=== PATIENT | female | born 1955 | race Caucasian/White ===

== ENCOUNTER 2018-11-24 08:45 | Inpatient (IN) | payer OTHER, SELFPAY ==
[2018-11-03 14:51] VITALS: BMI 30.9
[2018-11-24] VITALS (13 sets, daily range): BP systolic 123–164; BP diastolic 64–95; PULSE 66–84; RESP 10–20; TEMP 36.3–37.2; O2SAT 91–98; BMI 30.5
[2018-11-24] MEDS: LACTATED RINGERS 1,000 ML 42 ML IV ×2 (09:44→12:45)
[2018-11-24] MEDS: CELECOXIB 200 MG CAPSULE PO (09:44)
[2018-11-24] MEDS: PREGABALIN 75 MG CAPSULE PO (09:44)
[2018-11-24] MEDS: ACETAMINOPHEN 325 MG TABLET 975 MG PO ×2 (09:45→20:08)
--- NOTE | 2018-11-24 10:13 | PM.PREOP ---
Pre-operative Note Interval Note History & Physical reviewed/Exam performed by Physician: Yes Changes to H&P: No
--- NOTE | 2018-11-24 11:00 | DI.RAD.S_ITS ---
PROCEDURE: XR KNEE RT 1TO2V INDICATIONS: prosthesis placement TECHNIQUE: 2 view(s) of the knee acquired. COMPARISON: None. FINDINGS: Bones: Patient is status post knee joint arthroplasty. Hardware components are in expected positions. Visualized bony structures are intact. Soft tissues: Overlying postoperative changes are noted. IMPRESSION: Status post right total knee arthroplasty. Dictated by: Peggy Lewis M.D. on 11/24/2018 at 13:22 Approved by: Peggy Lewis M.D. on 11/24/2018 at 13:22
[2018-11-24] MEDS: CEFAZOLIN 2 GM/100 ML FROZ.PIGGY IV ×2 (11:15→18:47)
[2018-11-24] MEDS: LIDOCAINE 1% W/EPI INJ 20 ML INJ (11:15)
[2018-11-24] MEDS: TRANEXAMIC ACID 1,000 MG VIAL 1000 MG INJ (11:20)
--- NOTE | 2018-11-24 11:35 | SUR.OPER ---
Supine on padded OR bed. Pillow under head, arms secured on padded armboards <90 degree abduction. Safety belt across torso. Non-operative leg secured with tape over blanket over lower leg. Operative leg secured in [place] positioner. Foam padded brace at thigh of operative leg.
[2018-11-24] MEDS: POVIDONE-IODINE 15 ML, SODIUM CHLORIDE 0.9% 250 ML TOP (11:46)
[2018-11-24] MEDS: BUPIVACAINE 0.5% W/ EPI (PF) 20 ML, BUPIVACAINE LIPOSOME 266 MG, SODIUM CHLORIDE 0.9% 8... INJ (11:47)
[2018-11-24] MEDS: BUPIVACAINE 0.5% W/ EPI (PF) 10 ML, TRANEXAMIC ACID 1,000 MG, SODIUM CHLORIDE 0.9% 20 ML INJ (11:48)
--- NOTE | 2018-11-24 12:30 | PM.OP.1 ---
Operative Date/Time/Diagnoses Date of procedure: 11/24/18 Time of procedure: 12:30 Pre-op diagnosis: Right knee osteoarthritis Status post right ACL reconstruction Post-op diagnosis: same Procedure & Clinicians Procedure: Right total knee arthroplasty Removal of tibial screws right knee Same procedure as scheduled: Yes Indications: The patient presents today for total knee arthroplasty after failure of conservative treatment. The nature of the procedure including the risks and benefits, alternatives, postoperative course and expected outcome were discussed and all questions answered. Consent was obtained. Operative site confirmed and marked. Surgeon: Lopez Salinas Army Helicopter Pilot: Yousuf Finn Anesthesia Type: General and Local Operative Notes Findings: Severe osteoarthritis with varus alignment. Status post ACL reconstruction. Closure Type: primary Specimen(s): other (Screws from previous ACL reconstruction) Prosthetic devices, grafts, tissues, transplants, or devices: [employer] BCS: 4 femoral component, 3 tibial component, 9 mm BCS polyethylene tray and 32 x 7.5 mm round patella Applied: implant(s) Estimated Blood Loss (mL): 75 Blood products transfused: none Tourniquet time (min): 26 Procedure in detail: The patient was taken to the operative suite and placed under general anesthesia. The patient was given prophylactic antibiotics prior to surgery. The patient was also given tranexamic acid, 1 g, just prior to surgery for postoperative hemostasis. The lateral knee was prepped and the joint injected with 20 mL of 1% Lidocaine with epinephrine. The knee was then prepped and draped in usual sterile fashion. The leg was exsanguinated with an Esmarch dressing and the tourniquet raised to 250 torr. A 15 cm anterior incision was made. Next a medial trivector arthrotomy was made. The extensor mechanism was marked to ensure accurate repair. Initial exposing dissection was carried out medially and laterally. The knee was then extended and the patellar thickness was measured and a cut made removing approximately 7.5 mm of bone. The patella was then sized and drilled. Some excess lateral bone was excised and the patellofemoral ligament released. The knee was then flexed and the intramedullary femoral guide dorene placed. The distal femoral cut was made in 6 ? of valgus at the + 0 position. The femoral size was measured and the appropriate cutting block was then placed and the anterior, posterior and chamfer cuts made. The extra medullary tibial alignment dorene was then placed along the anatomic axis of the tibia approximating the normal slope. The guide was set to remove approximately 10 mm from the less affected lateral side. The proximal tibial cut was then made with an oscillating saw. All meniscus and bony debris was then removed. Flexion extension gaps were checked. No specific balancing was required other than routine removal of osteophytes. The soft tissues were then injected with a combination of 20 mL of half percent Marcaine with epinephrine and 20 mL of Exparel. The trial components were then placed. The knee went into full extension and flexion beyond 120?. There was excellent medial- lateral balance throughout motion. Patellar tracking was excellent. The trial components were removed and the knee was cleansed with Pulsavac irrigation and dried. The final components were cemented in with high viscosity vacuum mixed bone cement with antibiotics. The knee was held in extension and the patellar clamp until the cement had adequately cured. The knee was irrigated and inspected for any further debris. The knee was then irrigated with dilute Betadine solution. The extensor mechanism was closed with 5 interrupted #1 Vicryl sutures in 90 degrees of flexion. The joint was then injected with a combination of 1 g of tranexamic acid and 20 mL of quarter percent Marcaine with epinephrine. The subcutaneous tissue was closed with 2-0 Vicryl. The skin was closed with sara and surgical adhesive. An Aquacell dressing and Orlin wrap were then applied. The patient tolerated the procedure well and was returned to recovery room in good condition. Complications: none Condition: stable Disposition: PACU Plan for aftercare: [facility] protocol for total knee arthroplasty.
[2018-11-24] MEDS: fentaNYL 100 MCG/2 ML INJ 50 MCG IV ×2 (12:54→13:05)
[2018-11-24] MEDS: LACTATED RINGERS 1,000 ML 125 ML IV ×2 (13:53→22:15)
--- NOTE | 2018-11-24 14:32 | PC.NURSE ---
Addendum entered by Selina Welch R.N. 11/24/18 15:17: during shift report pt appeared resting comfortably on cpap with 4l bleed in at 96%. Original Note: Addendum entered by Selina Welch R.N. 11/24/18 14:56: called spoke with dr Brandt about pt's apnea while sleeping sats in mid to low 80's on 2l, also pt received fentanyl 50mcg at 1254 and 1305, did not tolerated NC and venti mask. Received order for RT eval and treat and ok for CPAP. Pt when awake sats are in mid 90's. Original Note: Day shift pt arrived to floor via bed, a&o able to make needs known, spouse at bedside, pt is drowsy able to answer at bedside sats mid to upper 90's when falls asleep sats mid to low 80's awakens easily and takes deep breath and returns into 90's, pt received dose of pain medication prior to getting up to the floor, pt continues to drop when falls asleep called RT and placing on venti mask at 28% fiO2. IV fluids infusing per order. oriented to room and call light, call light within reach and bed alarm on.
--- NOTE | 2018-11-24 16:09 | PC.NURSE ---
Velvet shift note: Received report by Selina WOLFE at bedside, patient placed on Cpap due to desats with NC. 4 L NC with CPAP, set up by RT. O2 sat 96-97%. Arouses easily. to return in the morning to visit. Will continue to monitor respiratory status closely.
--- NOTE | 2018-11-24 16:12 | PT.IPTN ---
Current Diagnoses Bilateral primary osteoarthritis of knee (11/24/18) Surgery Performed Operation Date: 11/24/18 11:00 Actual Procedures p Total Knee Arthroplasty(Right) - Lopez Salinas MD s Hardware Removal- right tibia(Right) - Lopez Salinas MD Physical Therapy Treatment Note M3 PT-IP Subjective Start: 11/24/18 16:09 Freq: NEEDED Status: Active Protocol: Document 11/24/18 16:09 AB (Rec: 11/24/18 16:12 AB [id number]) Subjective Physical Therapy Visit Type Notes checked pt for PT eval. Nurse stated that pt is not ready for PT. pt is miniminally arousable, nurse stated that O2 sat was low and they have to put cpap on her. will check on pt tomorrow.
[2018-11-24] MEDS: ONDANSETRON 4 MG/2 ML INJ IV (18:47)
[2018-11-24] MEDS: ASPIRIN EC 81 MG TABLET PO (20:08)
[2018-11-25 00:59] VITALS: BP 126/77; PULSE 83; RESP 15; TEMP 36.4; O2SAT 96
[2018-11-25] MEDS: CEFAZOLIN 2 GM/100 ML FROZ.PIGGY IV (02:56)
[2018-11-25 06:00] VITALS: BP 125/76; PULSE 79; RESP 18; TEMP 36.6; O2SAT 99
[2018-11-25] MEDS: IBUPROFEN 600 MG TABLET PO ×2 (06:27→13:36)
[2018-11-25 06:30] LABS: Hematocrit 36.6 % (36-46); Hemoglobin 12.4 g/dL (12.0-16.0)
[2018-11-25 07:25] VITALS: BP 133/70; PULSE 72; RESP 18; TEMP 36.3; O2SAT 96
--- NOTE | 2018-11-25 07:34 | PM.PNPO.1 ---
Subjective Date Patient Seen: 11/25/18 Time Patient Seen: 07:34 Interval history: Patient's pain is moderate. Denies fever chills. No nausea vomiting. She has been up walking in room once. Otherwise without complaints. Exam Vital Signs (past 8 hours): - 11/25/18 00:59 11/25/18 06:00 Temperature 97.5 F L 97.8 F Pulse Rate 83 79 Respiratory Rate 15 18 Blood Pressure 126/77 125/76 Pulse Oximetry 96 99 Oxygen Delivery Method CPAP Oxygen Flow Rate 1.5 Narrative Exam Narrative: Pleasant 62-year-old female resting comfortably in bed in no apparent distress right knee dressing is clean, dry and intact. Right leg is warm and dry. Motor functions intact distal right lower extremity. Sensation is grossly intact to light touch. Objective Labs Result Diagrams: 11/25/18 06:00 Labs: Laboratory Results - last 24 hr 11/25/18 06:00 Hgb 12.4 Hct 36.6 Assessment & Plan Post-op Postoperative Procedures Operation Date: 11/24/18 11:00 Actual Procedures Side Surgeon p Total Knee Arthroplasty Right Lopez Salinas MD s Hardware Removal- right tibia Right Lopez Salinas MD mobilize with physical therapy. Likely discharge home tomorrow. Quality VTE Deep Vein Thrombosis/Pulmonary Embolism Present on Admission: No
[2018-11-25] MEDS: ASPIRIN EC 81 MG TABLET PO (08:39)
[2018-11-25] MEDS: hydroCHLOROthiazide 25 MG TABLET PO (08:39)
[2018-11-25] MEDS: ACETAMINOPHEN 325 MG TABLET 975 MG PO ×2 (08:40→15:13)
[2018-11-25] MEDS: OXYCODONE IR 5 MG TABLET PO ×2 (08:41→13:35)
--- NOTE | 2018-11-25 09:09 | CM.DANOTE ---
DCP: Case received, EMR reviewed and met with patient. Introduced self and role. DCP template completed with information currently available. Patient is a 62 year old female who admitted yesterday morning to the care of the hospitalist team. PCP: Dr. Pepe at [facility]. Payer: confirmed: [employer]. Patient came to hospital for Right Total Knee Arthroplasty. Patient has history of chronic right knee pain. She has sustained a fall in March going up the stairs, and has had problems with this knee since then. Met with her briefly, alert and oriented. Patient resides in [place] with her , Juliocesar. Has a walker that she uses, otherwise, she is independent. She has outpatient physical therapy set up. P: DCP to continue to follow. She will be working with physical therapy today for the first time. Should be able to go home when she is stable. Shell Villa RN/Guitar Technician
--- NOTE | 2018-11-25 10:49 | PT.IIE ---
Current Diagnoses Bilateral primary osteoarthritis of knee (11/24/18) Surgery Performed Operation Date: 11/24/18 11:00 Actual Procedures p Total Knee Arthroplasty(Right) - Lopez Salinas MD s Hardware Removal- right tibia(Right) - Lopez Salinas MD Surgical History (Last Updated 11/23/18 @ 15:11 by Marce Trevino, RN) H/O knee surgery (Acute) History of bilateral tubal ligation (Acute) History of breast biopsy (Acute) History of tonsillectomy (Acute) Medical History (Last Updated 11/03/18 @ 15:26 by Marce Trevino, RN) Arthritis (Acute) Bruises easily (Acute) Degenerative arthritis of right knee (Acute) Hearing loss (Acute) History of fracture of skull (Acute) Hx of tear of ACL (anterior cruciate ligament) (Acute) Hypertension (Acute) Postmenopausal (Acute) Physical Therapy Inpatient Evaluation/Re-Eval M1 PT/OT-IP Prior Functional Status Start: 11/24/18 16:09 Freq: NEEDED Status: Active Protocol: Document 11/25/18 10:25 NFW (Rec: 11/25/18 10:48 NFW [id number]) Medical Review Prior Functional Status Medical History Reviewed Yes Diet/Fluid Consistency Regular Communication No Problems. Mobility and Gait Walked around home without assistive devices. Would go up and down stairs mostly one step at a time and using handrail. Activities of Daily Living and IADL's Independent with all ADLs. Prior Functional Level (Other details) Drove as needed. Social History Household Members spouse Living Arrangements House Number of Floors (Floors) Two Floors Number of Stairs To Enter/Railing? To enter home from front door has two single steps then a double step, no hand rails. From the garage into lower level no steps into main room, has recliner and bathroom with hi-toilet, no shower. From lower level 4 steps to main level with handrail left. To bedrooms another 9-10 steps with handrail left. Home Environment High Toilet Walk in Shower Built-In Shower Seat Home Equipment Front Wheel Walker Straight Cane M2 PT-IP Current Condition Start: 11/24/18 16:09 Freq: NEEDED Status: Active Protocol: Document 11/25/18 10:25 NFW (Rec: 11/25/18 10:48 NF [id number]) Physical Therapy Current Condition Current Condition Evaluation Date 11/25/18 Treatment Diagnosis OA right knee, s/p TKR 11/24/18 Weight Bearing Status Weight Bearing Status Weight Bear as Tolerated M3 PT-IP Subjective Start: 11/24/18 16:09 Freq: NEEDED Status: Active Protocol: Document 11/25/18 10:25 NFW (Rec: 11/25/18 10:48 NF [email or web address]) Subjective Physical Therapy Visit Type Type Initial Evaluation Visit Start Time 09:35 Visit Stop Time 10:25 Total Visit Minutes 50 Number of PERSONAL LINES ACCOUNT EXECUTIVE Visits 0 Physical Therapy Visit Comments Patient Goals To return home with in [place]. Therapy Pain Assessment Pain When Pain Assessed During Mobility Pain Present Pain Present Pain Reported Location Left Knee Description Burning Pulling Pain Behaviors Facial Grimacing Pain Management Techniques Apply Cold M4 PT-IP Mobility and Gait Start: 11/24/18 16:09 Freq: NEEDED Status: Active Protocol: Document 11/25/18 10:25 NFW (Rec: 11/25/18 10:48 NF [id number]) PT-Bed Mobility Assessment Supine to Sit Supine to Sit Contact Guard Assistance Sit to Supine Sit to Supine Standby Assistance Scooting Scooting to Edge of Bed Contact Guard Assistance Scooting Up and Down in Bed Standby Assistance PT-Transfer Assessment Sit to and From Stand Sit to and from Stand Contact Guard Assistance 1 Person Assistance Equipment Transfer Assistive Device Gait Belt Front Wheeled Walker Orthotic/Prosthetic Devices or Brace: No Transfers Transfer Destination Bed Chair Toilet Transfer Ability Level of Assist Contact Guard Assistance 1 Person Assistance Comments Mobility Comments Good followthrough after verbal instructions. Gait Assessment Gait Gait Assistance Required: Contact Guard Assist 1 Person Assist Distance (Feet) 90 Able to Maintain Weight Bearing Status Yes During Gait Assistive Devices Assistive Device Gait Belt Front Wheeled Walker Orthotic/Prosthetic Devices or Brace: No Gait Deviations General Gait Pattern Flexed Trunk Step-to Gait Factors Limiting Gait Function Factors Limiting Gait Function Decreased Activity Tolerance Decreased Sensation Decreased Strength Limited Range of Motion Pain Poor Balance Comments Gait Comments Stride too long with right LE, guarded with wb on right. Uses step-to gait. PT-Balance Assessment Sitting Balance and Reactions Static Sitting Balance Ability Normal Dynamic Sitting Balance Ability Normal Standing Balance and Reactions Static Standing Balance Ability Good M5 PT-IP Objective Assessments Start: 11/24/18 16:09 Freq: NEEDED Status: Active Protocol: Document 11/25/18 10:25 NFW (Rec: 11/25/18 10:48 NFW [id number]) Orientation Orientation/Cognition Level of Alertness Alert Orientation Name Age Birthday Month Date Year Day of Week Place Situation Language Function Ability No Deficits Noted Safety Awareness Understands Safety Issues Memory Description No Deficits Noted Comments Patient does feel a little groggy from meds received. Gross Range of Motion Lower Extremity ROM Assessment Right Impaired Impairments Active ROM right with heel slides ~ 60 degrees. Strength Upper Extremity Strength Assessment Within Functional Limits Comments Strength Comments EHL, EDL, AT in RLE WNL. Good quadset, unable to perform SLR. Muscle Tone Muscle Tone WNL Yes M6 PT-IP Treatment Start: 11/24/18 16:09 Freq: NEEDED Status: Active Protocol: Document 11/25/18 10:25 NFW (Rec: 11/25/18 10:48 NFW [id number]) Physical Therapy Treatment Exercises Exercises Ankle Pumps Gluteal Sets Quad Sets Heel Slides Knee ROM Measurement Active knee flexion with heel slides ~ 60 degrees. Education Education Provided Post-Op Packet M7 PT-IP Assessment and Plan Start: 11/24/18 16:09 Freq: NEEDED Status: Active Protocol: Document 11/25/18 10:25 NFW (Rec: 11/25/18 10:48 NFW [email or web address]) PT Summary Assessment and Plan Potential Rehabilitation Potential Excellent Status of Condition at Evaluation Evolving Summary Impairments Pain ROM Strength Balance Coordination Bed Mobility Transfers Gait Activity Tolerance Progress Towards Goals Progressing Toward Goals Goals Bed Mobility Goal Independent Transfer Goal Independent Gait Goal Independent Front Wheel Walker Other Goals Patient's FWW is too high and needs to be replaced. Days to Meet Goals 2 Frequency of Treatment Frequency Of Treatment Twice a Day Treatment Plan Physical Therapy Treatment Plan Bed Mobility Training Transfer Training Gait Training Therapeutic Exercise Balance Retraining Post Op Education Hot or Cold Pack Other Recommendations and Next Treatment Stairclimbing Focus Recommendations To Nursing Amount of Assist Needed 1 Person Assist Discharge Recommendations PT Discharge Recommendations Home Equipment Needed for Home Before Will need FWW exchanged as it Discharge is too high.
[2018-11-25 11:12] VITALS: BP 121/66; PULSE 70; RESP 18; TEMP 36.8; O2SAT 96
--- NOTE | 2018-11-25 13:50 | PT.IPTN ---
Current Diagnoses Bilateral primary osteoarthritis of knee (11/24/18) Surgery Performed Operation Date: 11/24/18 11:00 Actual Procedures p Total Knee Arthroplasty(Right) - Lopez Salinas MD s Hardware Removal- right tibia(Right) - Lopez Salinas MD Physical Therapy Treatment Note M2 PT-IP Current Condition Start: 11/24/18 16:09 Freq: NEEDED Status: Active Protocol: Document 11/25/18 10:25 NFW (Rec: 11/25/18 10:48 NFW [id number]) Physical Therapy Current Condition Current Condition Evaluation Date 11/25/18 Treatment Diagnosis OA right knee, s/p TKR 11/24/18 Weight Bearing Status Weight Bearing Status Weight Bear as Tolerated M3 PT-IP Subjective Start: 11/24/18 16:09 Freq: NEEDED Status: Active Protocol: Document 11/25/18 13:39 SA (Rec: 11/25/18 13:50 SA [id number]) Subjective Physical Therapy Visit Type Type Treatment Note Visit Start Time 12:53 Visit Stop Time 13:20 Total Visit Minutes 27 Notes Pt sitting up in chair, just finished lunch and agreeable to PT. Number of DEVELOPMENT CHEMIST Visits 1 Physical Therapy Visit Comments Patient Comments Pt eager to go home, reports 5 /10 knee pain. Patient Goals To return home with in [place]. Therapy Pain Assessment Pain When Pain Assessed During Mobility Pain Present Pain Present Pain Reported Location Left Knee Intensity 5 Scale Used Numeric (1 - 10) Description Acute Pressure With Movement Pain Management Techniques Apply Cold Timing of Activity with Medications M4 PT-IP Mobility and Gait Start: 11/24/18 16:09 Freq: NEEDED Status: Active Protocol: Document 11/25/18 13:39 SA (Rec: 11/25/18 13:50 SA [id number]) PT-Transfer Assessment Sit to and From Stand Sit to and from Stand Contact Guard Assistance 1 Person Assistance Equipment Transfer Assistive Device Gait Belt Front Wheeled Walker Transfers Transfer Destination Bed Chair Toilet Transfer Ability Level of Assist Contact Guard Assistance 1 Person Assistance Comments Mobility Comments Pt CGA with mobility and min cues for safety, uses FWW correctly and has appropriate size FWW. Pt limits WBing through RLE. Able to transfer on/off toilet with SBA safely, has toilet riser at home. Gait Assessment Gait Gait Assistance Required: Contact Guard Assist 1 Person Assist Distance (Feet) 125 Able to Maintain Weight Bearing Status Yes During Gait Assistive Devices Assistive Device Gait Belt Front Wheeled Walker Orthotic/Prosthetic Devices or Brace: No Gait Deviations General Gait Pattern Flexed Trunk Step-to Gait Factors Limiting Gait Function Factors Limiting Gait Function Decreased Activity Tolerance Decreased Sensation Decreased Strength Limited Range of Motion Pain Poor Balance Comments Gait Comments Pt with limited RLE WBing and LLE shortened step length, able to correct with cues and focus on gait, also able to correct to upright posture with cues. Stair Climbing Assessment Comments Stair Climbing Comments Pt states she can enter home through garage which is flat and has no stairs. Pt needs to get to 2nd floor for bathing though. Pt declined trial of stair climb today citing fatigue and pain. PT-Balance Assessment Sitting Balance and Reactions Static Sitting Balance Ability Normal Dynamic Sitting Balance Ability Normal Standing Balance and Reactions Static Standing Balance Ability Good M5 PT-IP Objective Assessments Start: 11/24/18 16:09 Freq: NEEDED Status: Active Protocol: Document 11/25/18 10:25 NFW (Rec: 11/25/18 10:48 NFW [email or web address]) Orientation Orientation/Cognition Level of Alertness Alert Orientation Name Age Birthday Month Date Year Day of Week Place Situation Language Function Ability No Deficits Noted Safety Awareness Understands Safety Issues Memory Description No Deficits Noted Comments Patient does feel a little groggy from meds received. Gross Range of Motion Lower Extremity ROM Assessment Right Impaired Impairments Active ROM right with heel slides ~ 60 degrees. Strength Upper Extremity Strength Assessment Within Functional Limits Comments Strength Comments EHL, EDL, AT in RLE WNL. Good quadset, unable to perform SLR. Muscle Tone Muscle Tone WNL Yes M6 PT-IP Treatment Start: 11/24/18 16:09 Freq: NEEDED Status: Active Protocol: Document 11/25/18 13:39 SA (Rec: 11/25/18 13:50 [email or web address]) Physical Therapy Treatment Exercises Exercises Ankle Pumps Gluteal Sets Quad Sets Heel Slides Education Education Provided Post-Op Packet Safety M7 PT-IP Assessment and Plan Start: 11/24/18 16:09 Freq: NEEDED Status: Active Protocol: Document 11/25/18 13:39 SA (Rec: 11/25/18 13:50 [id number]) PT Summary Assessment and Plan Summary Assessment Summary Pt CGA with gait and mobility and cues for safety, uses FWW and limits RLE WBing, declined stair climb today, will attempt tomorrow prior to d/c home with . Goals Days to Meet Goals 2 Frequency of Treatment Frequency Of Treatment Twice a Day Recommendations To Nursing Amount of Assist Needed 1 Person Assist Discharge Recommendations PT Discharge Recommendations Home Home with Assistance Equipment Needed for Home Before has appropriate FWW in room. Discharge
--- NOTE | 2018-11-25 14:20 | PM.DS.1 ---
History of Present Illness Date Patient Seen: 11/25/18 Time Patient Seen: 14:20 Chief complaint: [id number] Knee Arthroplasty Narrative: Patient doing well she is ready to go home. She does have assistance at home. She was able to ambulate in the [facility] with physical therapy. Discharge Providers Date of admission: 11/24/18 08:45 Primary care physician: ROHAN Mcleod Consults: 11/24/18 13:36 Consult to Discharge Planning Routine Comment: Consult to Physical Therapy Evaluate & Treat Comment: Physician Instructions: postop TKA protocol Consult to Respiratory Therapy Evaluate & Treat Comment: Physician Instructions: Evaluate and treat 11/24/18 14:56 Consult to Respiratory Therapy Evaluate & Treat Comment: Physician Instructions: Evaluate and treat Discharge provider: Yousuf Finn PA-C Discharge Date: 11/25/18 Summary Discharge Diagnosis: Status post right total knee arthroplasty Hospital Course: Patient taken to the operating room underwent right total knee arthroplasty. She did have removal tibial skew screwsProcedure: Right total knee arthroplasty Removal of tibial screws right knee Same procedure as scheduled: Yes Indications: The patient presents today for total knee arthroplasty after failure of conservative treatment. The nature of the procedure including the risks and benefits, alternatives, postoperative course and expected outcome were discussed and all questions answered. Consent was obtained. Operative site confirmed and marked. Surgeon: Lopez Salinas Scagliola Mechanic: Yousuf Finn Anesthesia Type: General and Local Operative Notes Findings: Severe osteoarthritis with varus alignment. Status post ACL reconstruction. Closure Type: primary Specimen(s): other (Screws from previous ACL reconstruction) Prosthetic devices, grafts, tissues, transplants, or devices: [employer] BCS: 4 femoral component, 3 tibial component, 9 mm BCS polyethylene tray and 32 x 7.5 mm round patella Applied: implant(s) Estimated Blood Loss (mL): 75 Blood products transfused: none Tourniquet time (min): 26 Patient taken to the operating room underwent right total knee arthroplasty. She did have removal of tibial screws right knee from her prior ACL reconstruction. Patient back in her room recovering well and is in stable condition. Status at Discharge Functional status at discharge: uses cane/walker Overall status at discharge: patient is progressing back to baseline Time Spent with Patient Less than 30 minutes Exam Vital Signs (past 8 hours): - 11/25/18 07:25 11/25/18 11:12 Temperature 97.3 F L 98.2 F Pulse Rate 72 70 Respiratory Rate 18 18 Blood Pressure 133/70 121/66 Pulse Oximetry 96 96 Oxygen Delivery Method CPAP Oxygen Flow Rate 0 Narrative Exam Narrative: See progress note Objective Labs Result Diagrams: 11/25/18 06:00 Labs: Laboratory Results - last 24 hr 11/25/18 06:00 Hgb 12.4 Hct 36.6 Discharge Plan Discharge Plan Patient Disposition: Home Discharge Med Rec/Prescriptions Prescriptions: Continued ibuprofen 200 mg Tablet 400 mg PO Q4-6H PRN (Reason: Pain) RF: 0 lisinopril 30 mg Tablet 30 mg PO DAILY RF: 0 hydrochlorothiazide 25 mg Tablet 25 mg PO DAILY RF: 0 lisinopril 10 mg Tablet 10 mg PO DAILY RF: 0 Follow up/Referrals: Yousuf Finn PA-C [[facility] Laboratory Technician] - Katlyn Pepe ARNP [Primary Care Provider] - Provider Discharge Instructions Diet: Diet as Tolerated Activity: Weightbearing as tolerated Cold/Heat Therapy: Place ice on affected knee as needed Other treatments: Per [facility] path protocol Skin/Wound/Dressing Care Report to your healthcare provider any signs of infection, such as:: chills, fever, increased pain, unusual drainage and unusual redness Dressing: Keep clean and dry Visit Report/Discharge Packet Instructions: DI for Knee Replacement Stand Alone Forms: Surgery Discharge Discharge Data Primary Care Provider: Katlyn Pepe Attending Provider: Lopez Salinas Admit Date/Time: 11/24/18 08:45 Quality VTE Deep Vein Thrombosis/Pulmonary Embolism Present on Admission: No
--- NOTE | 2018-11-25 16:30 | PC.NURSE ---
Velvet shift note: Patient awake, alert and oriented. Discharged home with as per MD order. Discussed activity per jerome path protocol, importance of F/U with PMD and medications. Patient verbalized understanding of instructions. VSS and afebrile. Discharged via WC to private vehicle. All personal belongings with patient.
== END 2018-11-25 17:02 | disposition home or self-care (01) | DRG 470 ==
PROVIDERS: Admitting Provider Orthopaedic Surgery; PCP Nurse Practitioner Family; Visit Provider Orthopaedic Surgery
PROC: 0SRC0JZ Replacement of Right Knee Joint with Synthetic Substitute, Open Approach (ICD-10-PCS; CPT 27447; principal; 2018-11-24 11:00)
PROC: 0SRC0J9 Replacement of Right Knee Joint with Synthetic Substitute, Cemented, Open Approach (ICD-10-PCS; 2018-11-24 11:00)
DX: M17.11 Unilateral primary osteoarthritis, right knee (principal); I10 Essential (primary) hypertension; Z87.891 Personal history of nicotine dependence
CPT/HCPCS: 36415; 73560; 85014; 85018; 97110; 97116; 97161; 97530; C1776; C9290; J0690; J1100; J1170; J2250; J2405; J2704; J3010

== ENCOUNTER 2021-08-12 13:32 | Emergency (ER) | payer OTHER, SELFPAY ==
[2018-11-24 13:54] VITALS: BMI 30.5
[2021-08-12] VITALS (20 sets, daily range): BP systolic 137–189; BP diastolic 72–94; PULSE 56–84; RESP 15–20; TEMP 35.9; O2SAT 93–100; BMI 28.3
--- NOTE | 2021-08-12 | DI.RAD.S_ITS ---
PROCEDURE: XR ANKLE LT 2V INDICATIONS: POST REDUCTION TECHNIQUE: 1 views of the ankle were acquired. COMPARISON: [facility], CR, XR ANKLE LT MIN 3V, 08/12/2021, 13:45. FINDINGS: Bones: Again noted is oblique fracture through distal fibular shaft with slight lateral displacement at fracture site and up to 3 mm diastasis compared to 5 mm on earlier study.. Ankle mortise is normally aligned. No suspicious bony lesions. Soft tissues: Soft tissue swelling around ankle joint is seen. No tibiotalar joint effusion. Achilles tendon appears normal. IMPRESSION: Interval reduction of earlier noted slightly displaced distal fibular shaft fracture with improved ankle alignment. No new fracture or dislocation. Ankle soft tissue swelling. Dictated by: Sylvester Dillon M.D. on 08/12/2021 at 15:52 Approved by: Sylvester Dillon M.D. on 08/12/2021 at 15:53
--- NOTE | 2021-08-12 13:38 | DI.RAD.S_ITS ---
PROCEDURE: XR ANKLE LT MIN 3V INDICATIONS: Fall with ankle pain TECHNIQUE: 3 views of the ankle were acquired. COMPARISON: None. FINDINGS: Bones: Oblique fracture of the distal fibular diaphysis with widening of the medial ankle mortise. The remaining visualized osseous structures appear maintained. Soft tissues: Edema about the fracture site with tibiotalar joint effusion. IMPRESSION: Distal fibula fracture as detailed above. Dictated by: Helio Lewis M.D. on 08/12/2021 at 13:54 Approved by: Helio Lewis M.D. on 08/12/2021 at 13:55
--- NOTE | 2021-08-12 13:42 | PC.NURSE ---
Pt rec'd 4mg morphine and 4mg zofran from EMS and 1L EMS NS infusing
--- NOTE | 2021-08-12 13:54 | ED.LOWEXIN ---
HPI - Extremity Injury (Lower) General Chief Complaint: Extremity Injury, Lower Stated Complaint: Lt Ankle FX Time Seen by Provider: 08/12/21 13:38 History of Present Illness HPI Narrative: 65F former smoker with history of hypertension presents by EMS for evaluation of left ankle pain. She was walking down some stairs and stepped awkwardly and fell over onto her ankle and felt a pop and now has significant pain, particularly with range of motion or ambulation. She denies dizziness, weakness or lightheadedness. She has no numbness or tingling. She has had no fever or chills. Related Data Home Medications Medication Instructions Recorded Confirmed hydrochlorothiazide 25 mg tablet 25 mg PO DAILY 11/03/18 11/24/18 ibuprofen 200 mg tablet 400 mg PO Q4-6H PRN 11/03/18 11/24/18 lisinopril 30 mg tablet 30 mg PO DAILY 11/03/18 11/24/18 lisinopril 10 mg tablet 10 mg PO DAILY 11/23/18 11/24/18 Previous Rx's Medication Instructions Recorded ondansetron 4 mg disintegrating 4 mg PO TID-QID PRN #10 tab 08/12/21 tablet oxycodone 5 mg tablet 5 mg PO Q4-6H PRN #20 tab 08/12/21 Allergies Allergy/AdvReac Type Severity Reaction Status Date / Time No Known Drug Allergies Allergy Verified 11/24/18 09:19 Review of Systems Review of Systems Narrative: GENERAL: Denies chills, fatigue, malaise, fever, sweats. HEENT: Denies sinus pain, ear pain, sore throat, difficulty swallowing, dizziness. RESPIRATORY: Denies dyspnea, cough, wheezing, hemoptysis, sputum. CARDIOVASCULAR: Denies chest pain, palpitations, orthopnea, edema, GASTROINTESTINAL: Denies nausea, vomiting, abdominal pain, diarrhea, constipation, melena. : Denies dysuria, frequency, incontinence, hematuria, urinary retention. MUSCULOSKELETAL: d see HP SKIN: Denies rash, skin lesions, or other NEUROLOGIC: Denies weakness, headache, numbness, change in speech, confusion, seizures, incoordination. PSYCHIATRIC: No concerning psychosocial issues. 12 point review of systems is negative except for those stated above Patient History Medical History (Updated 08/12/21 @ 15:33 by Bryan [place], DO) Arthritis Bruises easily Degenerative arthritis of right knee Hearing loss History of fracture of skull Hx of tear of ACL (anterior cruciate ligament) Hypertension Postmenopausal Surgical History (Updated 11/23/18 @ 15:11 by Marce Trevino RN) H/O knee surgery History of bilateral tubal ligation History of breast biopsy History of tonsillectomy Social History household members: spouse Smoking Status: Former smoker alcohol intake: current Smoking Status: Former smoker alcohol intake frequency: 3 or more drinks per day Substance Use Type: does not use Exam Narrative Exam Narrative: GENERAL: [65 year old patient appears stated age. Well-developed patient, in mild distress. HEAD: Atraumatic. Normocephalic. EYES: Pupils equal round and reactive. Extraocular motions intact. No scleral icterus. No injection or drainage. ENT: Nose without bleeding, purulent drainage. Throat without erythema, tonsillar hypertrophy or exudate. Airway patent. NECK: Trachea midline. Non tender CARDIOVASCULAR: Regular rate and rhythm without murmurs, gallops, or rubs. RESPIRATORY: Clear to auscultation. Breath sounds equal bilaterally. No wheezes, rales, or rhonchi. GASTROINTESTINAL: Abdomen soft, non-tender, nondistended. EXTREMITIES: Left ankle with obvious deformity and significant swelling with mild ecchymosis overlying lateral malleolus, dorsalis pedis pulse intact, cap refill less than 2 seconds. Closed, isolated and neurovascularly intact BACK: Nontender without deformity or crepitance. No flank tenderness. NEURO: AOx3. SKIN: No rash or erythema of visible areas Initial Vital Signs Initial Vital Signs: Vital Signs Temperature 96.6 F L 08/12/21 13:40 Pulse Rate 62 08/12/21 13:40 Respiratory Rate 16 08/12/21 13:40 Blood Pressure 156/76 H 08/12/21 13:40 Pulse Oximetry 96 08/12/21 13:40 Procedures Orthopedic Joint Reduction Joint #1: Time Out Performed: Yes Side: left Joint Reduction Location: ankle Analgesia: procedural sedation Technique used: traction/counter-traction and direct manipulation Post-reduction neuro exam: intact Post-reduction vascular: intact Post Reduction X-Ray Obtained: Yes Post Reduction X-Ray Results: reduced Splint Applied: Yes Patient Tolerated Procedure: Well Orthopedic Splinting/Casting Injury #1: Side: left Lower Extremity Injury Location: ankle Lower Extremity Immobilizer: posterior splint and stirrup splint Other Orthopedic Equipment: crutches Post splinting neuro exam: intact Post splinting vascular exam: intact Placed by: Provider Procedural Sedation Consent signed: Yes Time out performed: Yes Indication: fracture/dislocation reduction ASA Class: II Mallampati Airway Classification: Class II Preparation: cardiac cath lab radiology technologist applied, pulse oximeter, capnometry used, supplemental O2 applied, suction/airway equipment at bedside and IV secured Ketamine dose (mg): 77 IV Propofol dose (mg): 77 Intraservice time/total sedation time (min): 12 ED Sedation Level: Moderate (Concious) Patient Tolerated Procedure: Well Complications: none Course Orders Ordered: Discontinued Medications Sodium Chloride (Normal Saline 0.9%) 500 mls @ 1,000 mls/hr IV BOLUS ONE Stop: 08/12/21 14:07 Last Admin: 08/12/21 13:42 Dose: Not Given Documented by: MONICO Ondansetron HCl (Ondansetron 4 Mg/2 Ml Inj) 4 mg IV NOW ONE Stop: 08/12/21 14:57 Last Admin: 08/12/21 15:01 Dose: 4 mg Documented by: ISABELL Propofol (Propofol 200 Mg/20 Ml Vial) 75 mg 1 mg/kg (75 mg) IV NOW ONE Stop: 08/12/21 13:56 Last Admin: 08/12/21 14:55 Dose: 30 mg Documented by: ISABELL Propofol (Propofol 200 Mg/20 Ml Vial) 10 mg IV NOW ONE Stop: 08/12/21 15:25 Last Admin: 08/12/21 15:27 Dose: 10 mg Documented by: ISABELL Vital Signs Vital signs: Vital Signs - 8 hr 08/12/21 13:40 08/12/21 14:04 08/12/21 14:11 Temperature 96.6 F L Pulse Rate 62 61 59 L Respiratory Rate 16 18 Blood Pressure 156/76 H 146/73 H Pulse Oximetry 96 95 96 08/12/21 14:30 08/12/21 14:50 08/12/21 14:55 Temperature Pulse Rate 61 65 66 Respiratory Rate 20 18 16 Blood Pressure 147/72 H 180/89 H 156/79 H Pulse Oximetry 98 98 99 08/12/21 15:00 08/12/21 15:05 08/12/21 15:10 Temperature Pulse Rate 70 84 79 Respiratory Rate 17 17 20 Blood Pressure 179/94 H 172/91 H 189/91 H Pulse Oximetry 99 96 97 08/12/21 15:16 08/12/21 15:17 08/12/21 15:20 Temperature Pulse Rate 66 68 62 Respiratory Rate 18 16 16 Blood Pressure 160/82 H 152/73 H Pulse Oximetry 97 96 08/12/21 15:25 Temperature Pulse Rate 59 L Respiratory Rate 16 Blood Pressure 154/74 H Pulse Oximetry 94 MDM - Extremity Injury (Lower) Lab Data Labs: Lab Results 08/12/21 08/12/21 Range/Units 13:42 14:02 SARS-CoV-2 (PCR) Negative Negative (Negative) Point of Care Testing Test Results Not applicable Imaging Data Extremity x-ray #1: Radiologist's Impression: Launch?[address] [address] XRay Report Signed Patient: Guera Galloway MR#: [id number] : 1955 Acct:[id number] Age/Sex: 65 / F Date of Service: 08/12/21 Loc: ED Accession Number: [id number] ?? Procedure: XR ankle LT min 3V Ordering Provider: Bryan Salazar D.O. PROCEDURE:? XR ANKLE LT MIN 3V ? INDICATIONS:? Fall with ankle pain ? TECHNIQUE:? 3 views of the ankle were acquired.? ? COMPARISON:? None. ? FINDINGS:? ? Bones:? Oblique fracture of the distal fibular diaphysis with widening of the medial ankle mortise.? The remaining visualized osseous structures appear maintained. ? Soft tissues:? Edema about the fracture site with tibiotalar joint effusion.? ? ? IMPRESSION:? Distal fibula fracture as detailed above. ? Dictated by: Helio Lewis M.D. on 08/12/2021 at 13:54 ? ? Approved by: Helio Lewis M.D. on 08/12/2021 at 13:55 ? Guera Galloway??65??F??1955 ? Allergy/Adv: No Known Drug Allergies Close Knee X-Ray (Signed) Max Damian - 08/12/21 Ankle X-Ray (Signed) Helio Lewis - 08/12/21 Ankle X-Ray (Signed) Sylvester Dillon - 08/12/21 Knee X-Ray (Signed) Peggy Lewis - 11/24/18 Outside EKG 10/06/18 Launch?Image [address] [address] XRay Report Signed Patient: Guera Galloway MR#: [id number] : 1955 Acct:[id number] Age/Sex: 65 / F Date of Service: 08/12/21 Loc: ED Accession Number: [id number] ?? Procedure: XR ankle LT 2V Ordering Provider: Bryan Salazar D.O. PROCEDURE:? XR ANKLE LT 2V ? INDICATIONS:? POST REDUCTION ? TECHNIQUE:? 1 views of the ankle were acquired.? ? COMPARISON:? [facility], CR, XR ANKLE LT MIN 3V, 08/12/2021, 13:45. ? FINDINGS:? ? Bones:? Again noted is oblique fracture through distal fibular shaft with slight lateral displacement at fracture site and up to 3 mm diastasis compared to 5 mm on earlier study..? Ankle mortise is normally aligned.? No suspicious bony lesions.? ? Soft tissues:? Soft tissue swelling around ankle joint is seen.? No tibiotalar joint effusion.? Achilles tendon appears normal.? ? ? IMPRESSION:? Interval reduction of earlier noted slightly displaced distal fibular shaft fracture with improved ankle alignment.? No new fracture or dislocation.? Ankle soft tissue swelling. ? ? ? Dictated by: Sylvester Dillon M.D. on 08/12/2021 at 15:52 ? ? Approved by: Sylvester Dillon M.D. on 08/12/2021 at 15:53 ? Discharge Plan Departure Patient Disposition: Home Clinical Impression: Ankle fracture Qualifiers: Encounter type: initial encounter Fracture type: closed Laterality: left Qualified Code(s): S82.892A - Other fracture of left lower leg, initial encounter for closed fracture Instructions: DI for Fracture Activity Restrictions/Additional Instructions: *You have been diagnosed with [left ankle fracture and subluxation. *What to do: *Please continue to take your regular medications as directed. [x ] New medication prescriptions sent to your pharmacy: [[facility] in [place]] [ ] New medication written as a paper prescription [x] Tylenol and occasional Motrin for pain *Please follow up with [ Yohan] of [facility] in 2-3 days, call for an appointment. Let them know you were seen in the Emergency Department and that we ask that you be seen in follow up. We will electronically transmit a record of today's note if your PCP is in our system *Return to Emergency Department if you should have any new, worsening or concerning symptoms, such as [worsening pain, significant swelling, cold extremities, numbness, tingling, weakness or other bothersome symptoms Splint Care: Keep splint clean and dry. Elevated affected body part to decrease swelling. OK to use ice pack on the affected body part. Use for 15-20 minutes each time, for 5-6x per day. If you develop worsening pain, numbness, tingling, discoloration of the affected body part, loosen the splint by loosening the TIFFANY wrap, and either see your doctor for an urgent re-assessment, or return to the Emergency Department. Return to the Emergency Department for any new or worsening symptoms. You have been prescribed a short course of narcotic medications. These are potentially dangerous and addictive medications that should be used carefully. While on these medications you cannot drive or operate heavy machinery. Additionally, you cannot sign legal documents or perform any duties such as this. Many people get constipated on narcotic medications so it would be advisable to discuss stool softeners with the pharmacist when you pick pulling machine tender your prescription. Please understand that we cannot provide further refills of narcotics or controlled substances through the ED and your pain management will need to be through your Primary Care Provider Prescriptions: New ondansetron 4 mg tablet,disintegrating 4 mg PO TID-QID PRN (Reason: nausea and vomiting) Qty: 10 RF: 0 oxycodone 5 mg tablet 5 mg PO Q4-6H PRN (Reason: pain) Qty: 20 RF: 0 No Action ibuprofen 200 mg Tablet 400 mg PO Q4-6H PRN (Reason: Pain) RF: 0 lisinopril 30 mg Tablet 30 mg PO DAILY RF: 0 hydrochlorothiazide 25 mg Tablet 25 mg PO DAILY RF: 0 lisinopril 10 mg Tablet 10 mg PO DAILY RF: 0 Referrals: Katlyn Pepe ARNP [Primary Care Provider] - Skip Almanzar MD [Physician] -
--- NOTE | 2021-08-12 14:02 | DI.RAD.S_ITS ---
PROCEDURE: XR KNEE LT 1TO2V INDICATIONS: fall with knee pain TECHNIQUE: 3 views of the knee were acquired. COMPARISON: [facility] [place], CR, XR KNEE ARTHRITIC SERIES RT, 01/10/2019, 13:36. [facility], [place], XR KNEE RT 1TO2V, 11/24/2018, 12:56. FINDINGS: Bones: No acute fracture. Severe narrowing of the medial joint space. Scattered degenerative subchondral sclerosis and spurring. Soft tissues: No joint effusion. No suspicious soft tissue calcifications. IMPRESSION: No acute fracture identified. Severe degenerative joint disease as above. No definite interval change since 01/10/19. If the patient's pain or other symptoms persist, consider further evaluation with MRI Dictated by: Max Damian M.D. on 08/12/2021 at 15:07 Approved by: Max Damian M.D. on 08/12/2021 at 15:08
[2021-08-12 14:32] LABS: COVID19 -Nasal RAPID Negative (Negative)
[2021-08-12] MEDS: KETAMINE 50 MG/5 ML *SYRINGE 75 MG IV (14:55)
[2021-08-12] MEDS: propofoL 200 MG/20 ML VIAL 75 MG IV (14:55)
[2021-08-12] MEDS: KETAMINE 50 MG/5 ML *SYRINGE 10 MG IV (14:59)
[2021-08-12] MEDS: ONDANSETRON 4 MG/2 ML INJ IV (15:01)
[2021-08-12] MEDS: propofoL 200 MG/20 ML VIAL 10 MG IV (15:27)
[2021-08-12 16:01] LABS: COVID19 - ADMIT (NP swab/PCR) Negative (Negative)
== END 2021-08-12 16:07 | disposition home or self-care (01) ==
PROVIDERS: Emergency Provider Emergency Medicine; PCP Nurse Practitioner Family
DX: S82.892A Other fracture of left lower leg, initial encounter for closed fracture (principal); W10.9XXA Fall (on) (from) unspecified stairs and steps, initial encounter; Z20.822 Contact with and (suspected) exposure to COVID-19
CPT/HCPCS: 27788; 29515; 73560; 73600; 73610; 87635; 96374; 99152; 99284; 99285; C9803; J2405; J2704

== ENCOUNTER 2021-08-22 08:42 | Day surgery (SDC) | payer OTHER, SELFPAY ==
[2018-11-24 13:54] VITALS: BMI 30.5
[2021-08-19 15:22] VITALS: BMI 30.9
[2021-08-22] VITALS (7 sets, daily range): BP systolic 129–164; BP diastolic 57–95; PULSE 74–86; RESP 12–20; TEMP 36.2–37.1; O2SAT 92–98; BMI 30.9
[2021-08-22 09:26] LABS: COVID19 -Nasal RAPID Negative (Negative)
[2021-08-22] MEDS: LACTATED RINGERS 1,000 ML 42 ML IV ×2 (09:58→12:16)
--- NOTE | 2021-08-22 10:15 | P.HP_ITS ---
History of Present Illness History of Present Illness Date Patient Seen: 08/22/21 Time Patient Seen: 10:15 Chief complaint: ORIF LEFT DISTAL FIBULA FX Narrative: 65-year-old female who sustained a left ankle fracture. Patient states that her knee gave out while going down stairs causing her to trip and fall. Patient has a history of left knee osteoarthritis and this occasionally causes pain as well as instability. Denies any other injuries from the fall. Patient History Medical History Arthritis Bruises easily Degenerative arthritis of right knee Hearing loss History of fracture of skull Hx of tear of ACL (anterior cruciate ligament) Hypertension Postmenopausal Surgical History H/O knee surgery History of bilateral tubal ligation History of breast biopsy History of tonsillectomy History of total right knee replacement (11/24/15) Family & Social History Social History: household members spouse Tobacco & Substance use: Tobacco type cigarettes Smoking Status Former smoker alcohol intake current alcohol intake frequency 3 or more drinks per day Substance Use Type does not use Meds Home Medications and Allergies Home Medications Medication Instructions Recorded Confirmed Type hydrochlorothiazide 25 mg tablet 25 mg PO DAILY 11/03/18 08/22/21 History ibuprofen 200 mg tablet 400 mg PO Q4-6H PRN 11/03/18 08/22/21 History lisinopril 30 mg tablet 30 mg PO DAILY 11/03/18 08/22/21 History lisinopril 10 mg tablet 10 mg PO DAILY 11/23/18 08/22/21 History ondansetron 4 mg disintegrating 4 mg PO TID-QID PRN #10 tab 08/12/21 08/22/21 Rx tablet oxycodone 5 mg tablet 5 mg PO Q4-6H PRN #20 tab 08/12/21 08/22/21 Rx Allergies Allergy/AdvReac Type Severity Reaction Status Date / Time No Known Drug Allergies Allergy Verified 08/22/21 09:35 Exam Vital Signs (past 8 hours): - 08/22/21 09:30 Temperature 97.6 F Pulse Rate 77 Respiratory Rate 16 Blood Pressure 153/85 H Pulse Oximetry 98 Oxygen Delivery Method Room Air Narrative Exam Narrative: Patient is in a posterior and stirrup splint immobilizing the ankle. No sign of any swelling to the knee. Patient does have some pain with range of motion of the knee due to her long-standing arthritic changes. But no sign of any acute injuries no sign of any knee instability. Compartments are soft. Brisk cap refill and positive flexion and extension of her toes. Objective Labs Labs: Laboratory Results - last 24 hr 08/22/21 08:10 SARS-CoV-2 (PCR) Negative Assessment & Plan Assessment & Plan narrative: Patient with a left distal fibular fracture status post fall. Due to the amount of displacement we did recommend surgical treatment. This would involve an open reduction internal fixation of left di stal fibula. I went over the surgery as well as the risk and limitations associated with the procedure. All the patient's questions and concerns were answered to her full satisfaction. The risk, benefits, alternatives, possible complications, operative course, and postop outcomes were discussed. Complications including but not limiting to bleeding, infection, fracture, nerve injury, continued pain postoperatively or instability postoperatively were discussed in detail. Medical complications including but not limited to deep venous thrombosis event, anesthesia complications with excessive bleeding, vascular events or cardiac events and other possible complications were discussed in detail. Need for postoperative rehabilitation and anticipated hospital stay and clinical course were discussed in detail. Patient acknowledges understanding and elects to proceed with surgery. COVID-19 Result date/Date tested (Pos, Neg/Pending): 08/22/21 Time Spent With Patient Critical Care time: I spent a total of [] minutes of critical care time on this patient's care today; this time is exclusive of procedural time.
--- NOTE | 2021-08-22 10:18 | PM.PREOP ---
Pre-operative Note COVID-19 Result date/Date tested (Pos, Neg/Pending): 08/22/21 Interval Note History & Physical reviewed/Exam performed by Physician: Yes Changes to H&P: No
[2021-08-22] MEDS: CEFAZOLIN 1 GM VIAL 2 GM IV (11:04)
--- NOTE | 2021-08-22 11:30 | SUR.OPER ---
Supine on padded OR bed, head on pillow, arms secured on padded arm boards at <90 degrees abduction, legs uncrossed, safety belt at waist, tape over blanket over lower right leg, left leg draped free with gel bump under left buttock .
[2021-08-22] MEDS: EPINEPHrine 1 MG/ML 0.15 MG INJ (11:40)
[2021-08-22] MEDS: BUPIVACAINE 0.5% (PF) VIAL 30 ML INJ (11:41)
--- NOTE | 2021-08-22 11:43 | SUR.OPER ---
Supine on padded OR bed, head on pillow, arms secured on padded arm boards at <90 degrees abduction, legs uncrossed, safety belt at thigh, tape over blanket over lower legs.Bum[ positioned under patiebnt's left hip by Dr. Bruno
--- NOTE | 2021-08-22 12:43 | P.OP_ITS ---
Operative Date/Time/Diagnoses Date of procedure: 08/22/21 Time of procedure: 11:30 Pre-op diagnosis: Left ankle fracture Post-op diagnosis: same Procedure & Clinicians Procedure: Open reduction internal fixation of the left ankle fracture with repair of syndesmosis injury Same procedure as scheduled: Yes Indications: Left ankle fracture Surgeon: Skip Almanzar Click Yes if Unassisted: Yes Anesthesia Type: General Operative Notes Findings: Displaced fracture involving the lateral malleolus as well as widening of the medial mortise Closure Type: primary Specimen(s): none sent Applied: implant(s) (Arthrex distal fibular plate with tight rope) Estimated Blood Loss (mL): 10 Blood products transfused: none Tourniquet time (min): 69 Procedure in detail: On date of service, patient was met in the holding area where her operative site was signed and witnessed by the OR staff. Surgeries once again discussed with the patient and any remaining questions or concerns she had were answered fully. Patient was taken back to the operating theater. Placed on the operating table in a supine position. Great care was taken to ensure that all bony prominences were appropriately padded. Well-padded tourniquet was placed up along the left leg. Time-out was performed verifying patient's name, procedure, and operative site. Left leg was prepped and draped in normal sterile fashion. Esmarch was used to exsanguinate the limb and the tourniquet was turned up to 250 mm of mercury. Ten blade was used to incise through skin and fascial tissue. An incision was made starting at the tip of the distal fibula and extending proximally. Deep knife was used to continue sharp dissection down to the periosteum of the distal fibula. Periosteal tissue was dissected off the distal fibula giving us good visualization of the fracture. A curette was used to debride the fracture site removing any interposed soft tissue. Then the fracture site was copiously irrigated. Next, 2 point reduction forceps were used to reduce the fracture. C-arm was brought in to verify reduction. Once we were satisfied with the reduction a lag screw was placed across fracture. This provided good compression at the fracture site. Next, distal fibular plate was placed and held provisionally. This was then secured both proximal and distal to the fracture the combination of locking and nonlocking screws. After secure fixation of the distal fibular fracture there was still some widening of the medial mortise. At this point it was decided to place a tight rope. Using 1 of the distal 3.5 cortical screw holes in the pl ate, a guidewire was placed across the fibula and tibia. This position was confirmed with C-arm. This was then followed by a cannulated drill also verified with C-arm. Next, tight rope was placed across the fibula and tibia. Under live fluoro the tight rope was tightened down bringing the medial mortise into a more anatomic position. This was secured to the lateral plate providing secure fixation of the mortise and repair the syndesmosis. The wound was then copiously irrigated. It was closed in layered fashion. Patient's leg was cleaned, dried, and dressed and a splint was placed. Patient was extubated and taken to the PACU in stable condition. Complications: none Post-operative Condition: stable Disposition: PACU Plan for aftercare: Patient will be nonweightbearing for 2 weeks. After 2 weeks patient will be converted to a walking boot. At that point patient can be partially weight-bearing in the boot using crutches.
[2021-08-22] MEDS: fentaNYL 100 MCG/2 ML INJ IV (12:48)
[2021-08-22] MEDS: OXYCODONE IR 5 MG TABLET PO ×2 (13:00→13:32)
== END 2021-08-22 13:50 | disposition home or self-care (01) ==
PROVIDERS: PCP Nurse Practitioner Family; Referring Provider Orthopaedic Surgery; Visit Provider Orthopaedic Surgery
PROC: (CPT 27792; principal; 2021-08-22 10:45)
DX: S82.832A Other fracture of upper and lower end of left fibula, initial encounter for closed fracture (principal); S93.05XA Dislocation of left ankle joint, initial encounter; W10.9XXA Fall (on) (from) unspecified stairs and steps, initial encounter; Z20.822 Contact with and (suspected) exposure to COVID-19
CPT/HCPCS: 27792; 27829; 87635; J0171; J0690; J3010